=== PATIENT | female | born 1980 | race Caucasian/White ===

== ENCOUNTER → 2023-06-04 09:33 | Outpatient (CLI) | payer OTHER, SELFPAY | PROVIDERS: Visit Provider Nurse Practitioner Family | DX: J02.9 Acute pharyngitis, unspecified (principal) | CPT/HCPCS: 87070 ==

== ENCOUNTER → 2023-06-16 13:47 | Outpatient (CLI) | payer OTHER, SELFPAY ==
[2023-06-16 20:53] LABS: Urine N gonorrhoeae NOT DETECTED
[2023-06-16 21:20] LABS: Urine Chlamydia NOT DETECTED
== END ==
PROVIDERS: PCP Physician Assistant Medical; Visit Provider Physician Assistant Medical
DX: J02.9 Acute pharyngitis, unspecified (principal)
CPT/HCPCS: 87070; 87491; 87591

== ENCOUNTER → 2023-06-29 09:13 | Outpatient (CLI) | payer OTHER, SELFPAY ==
[2023-06-29 19:20] LABS: Add Manual Diff / Slide Review NO; Basophils Absolute Auto 0 /uL (0-100); Basophils Percent Auto 0.6 % (0-2); Eosinophils Absolute Auto 200 /uL (0-450); Eosinophils Percent Auto 2.6 % (2-4); Hematocrit 39.4 % (36-46); Hemoglobin 13.5 g/dL (12.0-16.0); Lymphocytes Absolute Auto 1200 /uL (1100-4500); Mean Corpuscular HGB Conc 34.2 % (30-36); Mean Corpuscular Hemoglobin 29.3 PG (26-34); Mean Corpuscular Volume 85.6 fL (80-100); Monocytes Absolute Auto 500 /uL (0-900); Monocytes Percent Auto 7.2 % (3-14); Neutrophils Absolute Auto 5300 /uL (1500-7000); Neutrophils Percent Auto 72.6 % (50-75); Platelet Count 336 X10^3/uL (150-400); Red Cell Distribution Width 13.7 % (11.6-14.8); White Blood Cell Count 7.2 X10^3/uL (4.5-11.0)
[2023-06-29 20:18] LABS: Alanine Aminotransferase 91 IU/L (<35); Albumin 4.3 g/dL (3.5-5.0); Albumin Globulin Ratio 1.3 (1.0-2.8); Alkaline Phosphatase 103 U/L (38-126); Aspartate Aminotransferase 65 IU/L (14-36); BUN Creatinine Ratio 18.6 (6-22); Bilirubin Total 0.8 mg/dL (0.2-1.3); Blood Urea Nitrogen 11 mg/dL (7-17); Calcium 9.5 mg/dL (8.4-10.2); Carbon Dioxide 26 mmol/L (22-32); Chloride 95 mmol/L (98-107); Cholesterol 166 mg/dL (140-199); Estimated Glomerular Filt Rate > 60 mL/min (>60); Globulin 3.3 g/dL (1.7-4.1); Glucose 90 mg/dL (70-100); HDL Cholesterol 71 mg/dL (40-60); HEMOLYSIS < 15 (0-50); LDL Cholesterol Calculated 82 mg/dL (<100); Potassium 3.7 mmol/L (3.4-5.1); Sodium 131 mmol/L (137-145); Total Protein 7.6 g/dL (6.3-8.2); Triglycerides 65 mg/dL (35-150)
[2023-06-29 20:28] LABS: Vitamin D 25 Hydroxy (D3) 41.1 ng/mL (30.0-100.0)
[2023-06-29 20:42] LABS: TSH w/ Reflex to FT4 1.57 uIU/mL (0.47-4.68)
[2023-07-01 16:32] LABS: Hepatitis B Surface Antigen NEGATIVE s/c (NEGATIVE)
[2023-07-01 16:51] LABS: Hep C Virus Ab w/Reflex Quant NEGATIVE s/c (NEGATIVE)
[2023-07-09 09:13] LABS: HSV1IGG < 0.91
[2023-07-09 09:16] LABS: HSV 2 IGG AB < 0.91
== END ==
PROVIDERS: PCP Physician Assistant Medical; Visit Provider Physician Assistant Medical
DX: J02.9 Acute pharyngitis, unspecified (principal); M54.2 Cervicalgia; Z11.3 Encounter for screening for infections with a predominantly sexual mode of transmission; K14.6 Glossodynia; R79.89 Other specified abnormal findings of blood chemistry
CPT/HCPCS: 80053; 80061; 82306; 84443; 85025; 86695; 86696; 86803; 87340

== ENCOUNTER → 2023-07-08 09:14 | Outpatient (CLI) | payer OTHER, SELFPAY ==
--- NOTE | 2023-07-08 09:15 | DI.US.S_ITS ---
PROCEDURE: US ABDOMEN LIMITED INDICATIONS: ELEVATED LFT'S TECHNIQUE: Real-time scanning was performed of the abdominal and retroperitoneal organs, with image documentation. COMPARISON: None. FINDINGS: Liver: The liver demonstrates diffusely increased echotexture without focal abnormalities consistent with chronic hepatocellular disease/hepatic steatosis. Gallbladder: Gallbladder is normal in sonographic appearance without gallstones, gallbladder wall thickening, pericholecystic fluid, or abnormal sonographic Fowler's. Biliary ducts: Intrahepatic bile ducts are non-dilated. Extrahepatic bile duct caliber measures 2 mm. Normal is 6-7 mm or less in diameter, or 10 mm or less post-cholecystectomy. Pancreas: Visualized portions of the pancreas are sonographically normal. Spleen: Spleen is normal in size and homogeneous in echotexture. Kidneys: Right kidney is normal in size and echotexture. Right kidney measures 10.1 cm long. No hydronephrosis or nephrolithiasis. No solid masses. Miscellaneous: No free abdominal fluid. IMPRESSION: The liver demonstrates diffusely increased echotexture without focal abnormalities consistent with chronic hepatocellular disease/hepatic steatosis. Findings may explain patient's elevated LFTs. Dictated by: Stephen Jenkins M.D. on 07/08/2023 at 14:51 Approved by: Stephen Jenkins M.D. on 07/08/2023 at 14:53
== END ==
LOC: US 09:15
PROVIDERS: PCP Physician Assistant Medical; Referring Provider Physician Assistant Medical; Visit Provider Physician Assistant Medical
DX: R79.89 Other specified abnormal findings of blood chemistry (principal)
CPT/HCPCS: 76705

== ENCOUNTER → 2023-07-22 11:13 | Outpatient (CLI) | payer OTHER, SELFPAY ==
[2023-07-22 20:52] LABS: Alanine Aminotransferase 42 IU/L (<35); Albumin 4.1 g/dL (3.5-5.0); Albumin Globulin Ratio 1.3 (1.0-2.8); Alkaline Phosphatase 91 U/L (38-126); Aspartate Aminotransferase 45 IU/L (14-36); BUN Creatinine Ratio 16.9 (6-22); Bilirubin Total 0.5 mg/dL (0.2-1.3); Blood Urea Nitrogen 11 mg/dL (7-17); Calcium 8.9 mg/dL (8.4-10.2); Carbon Dioxide 25 mmol/L (22-32); Chloride 99 mmol/L (98-107); Estimated Glomerular Filt Rate > 60 mL/min (>60); Gamma Glutamyl Transpeptidase 48 U/L (12-43); Globulin 3.1 g/dL (1.7-4.1); Glucose 69 mg/dL (70-100); HEMOLYSIS < 15 (0-50); Potassium 4.1 mmol/L (3.4-5.1); Sodium 133 mmol/L (137-145); Total Protein 7.2 g/dL (6.3-8.2)
[2023-07-22 21:31] LABS: Hepatitis B Surface Antigen NEGATIVE s/c (NEGATIVE)
[2023-07-22 21:48] LABS: Hep C Virus Ab w/Reflex Quant NEGATIVE s/c (NEGATIVE)
== END ==
PROVIDERS: PCP Physician Assistant Medical; Visit Provider Physician Assistant Medical
DX: R79.89 Other specified abnormal findings of blood chemistry (principal)
CPT/HCPCS: 80053; 82977; 86803; 87340

== ENCOUNTER → 2023-10-11 13:22 | Outpatient (CLI) | payer OTHER, SELFPAY ==
[2023-10-11 20:46] LABS: Erythrocyte Sedimentation Rate 6 MM/HR (0-20)
[2023-10-11 20:49] LABS: C-Reactive Protein Quant < 0.5 mg/dL (<1.0)
== END ==
PROVIDERS: PCP Physician Assistant Medical; Visit Provider Physician Assistant Medical
DX: R76.8 Other specified abnormal immunological findings in serum (principal); K75.81 Nonalcoholic steatohepatitis (NASH); K14.6 Glossodynia
CPT/HCPCS: 85651; 86140; 86200

== ENCOUNTER → 2023-11-11 08:10 | Outpatient (CLI) | payer OTHER, SELFPAY ==
--- NOTE | 2023-11-11 08:11 | DI.MRI.S_ITS ---
PROCEDURE: MR HAND RT WO/W CON INDICATIONS: Dog bite with persistent swelling and decreased ROM TECHNIQUE: Noncontrast coronal T1 spin echo and T2 fast spin echo with fat saturation, axial proton density fast spin echo and T2 fast spin echo with fat saturation, axial T1 spin echo with fat saturation, sagittal T1 spin echo and STIR through the hand and fingers. Post-contrast axial, coronal, and sagittal T1 spin echo through the hand and fingers. COMPARISON: [facility], CR, XR HAND 3+ VIEWS RIGHT, 10/19/2023, 0:48. FINDINGS: Image quality: Excellent. Bones: Focal signal abnormality is seen at the midportion of the 2nd and 3rd metacarpal shafts that could be secondary to osseous contusions or reactive edema. Osteomyelitis is considered less likely. The bones are normally aligned, without marrow contusions or fractures. No intra-osseous lesions. Soft tissues: Subcutaneous edema and enhancement are seen at the dorsal aspect of the hand at the level of the 2nd and 3rd metacarpal shafts. There is also edema within the interosseous musculature. No drainable fluid collection. Edema is seen surrounding the 2nd and 3rd extensor tendons without significant tenosynovitis or tendon tearing. Focal soft tissue edema is seen at the webspace between the 4th and 5th fingers. Visualized musculature is otherwise normal. The visualized flexor tendons are intact. IMPRESSION: 1. Soft tissue edema and enhancement at the dorsum of the hand overlying the 2nd and 3rd metacarpals extending into the interosseous muscles. No focal fluid collection. Mild focal soft tissue edema at the interspace between the 4th and 5th fingers. Edema surrounds the extensor tendons at the dorsum of the hand without acute tendon tearing. 2. Small foci of abnormal signal at the mid 2nd and 3rd metacarpal shafts, possibly reactive or secondary to osseous contusions. Osteomyelitis is considered less likely. Approved by: Dario Garcia M.D. on 11/11/2023 at 15:47
== END ==
PROVIDERS: PCP Physician Assistant Medical; Referring Provider Physician Assistant; Visit Provider Physician Assistant
DX: S61.451A Open bite of right hand, initial encounter (principal); M79.89 Other specified soft tissue disorders; W54.0XXA Bitten by dog, initial encounter
CPT/HCPCS: 73220; A9579

== ENCOUNTER → 2024-05-25 12:02 | Outpatient (CLI) | payer OTHER, SELFPAY ==
[2024-05-25 19:47] LABS: Alanine Aminotransferase 20 IU/L (<35); Albumin 4.1 g/dL (3.5-5.0); Albumin Globulin Ratio 1.3 (1.0-2.8); Alkaline Phosphatase 96 U/L (38-126); Aspartate Aminotransferase 33 IU/L (14-36); BUN Creatinine Ratio 19.4 (6-22); Bilirubin Total 0.4 mg/dL (0.2-1.3); Bilirubin Unconjugated 0.1 mg/dL (0.0-1.1); Blood Urea Nitrogen 14 mg/dL (7-17); Calcium 9.4 mg/dL (8.4-10.2); Carbon Dioxide 31 mmol/L (22-32); Chloride 101 mmol/L (98-107); Estimated Glomerular Filt Rate > 60 mL/min (>60); Globulin 3.2 g/dL (1.7-4.1); Glucose 100 mg/dL (70-100); HEMOLYSIS < 15 (0-50); Potassium 3.7 mmol/L (3.4-5.1); Sodium 137 mmol/L (137-145); Total Protein 7.3 g/dL (6.3-8.2)
[2024-05-25 19:53] LABS: Add Manual Diff / Slide Review NO; Basophils Absolute Auto 100 /uL (0-100); Basophils Percent Auto 1.1 % (0-2); Eosinophils Absolute Auto 200 /uL (0-450); Eosinophils Percent Auto 3.5 % (2-4); Hematocrit 41.7 % (36-46); Hemoglobin 14.4 g/dL (12.0-16.0); Lymphocytes Absolute Auto 1800 /uL (1100-4500); Mean Corpuscular HGB Conc 34.6 % (30-36); Mean Corpuscular Volume 86.8 fL (80-100); Monocytes Absolute Auto 500 /uL (0-900); Neutrophils Absolute Auto 3700 /uL (1500-7000); Neutrophils Percent Auto 59.4 % (50-75); Platelet Count 333 X10^3/uL (150-400); Red Cell Distribution Width 13.3 % (11.6-14.8); White Blood Cell Count 6.3 X10^3/uL (4.5-11.0)
[2024-05-25 20:19] LABS: Thyroid Stimulating Hormone 1.84 uIU/mL (0.47-4.68)
[2024-05-25 20:58] LABS: Erythrocyte Sedimentation Rate 15 MM/HR (0-20)
== END ==
PROVIDERS: PCP Physician Assistant Medical; Visit Provider Physician Assistant Medical
DX: S61.409A Unspecified open wound of unspecified hand, initial encounter (principal); R79.89 Other specified abnormal findings of blood chemistry; K75.81 Nonalcoholic steatohepatitis (NASH); R00.2 Palpitations; A04.72 Enterocolitis due to Clostridium difficile, not specified as recurrent; L03.90 Cellulitis, unspecified; S61.459A Open bite of unspecified hand, initial encounter; I96 Gangrene, not elsewhere classified; W54.0XXA Bitten by dog, initial encounter
CPT/HCPCS: 80053; 80076; 84443; 85025; 85651

== ENCOUNTER → 2024-06-29 12:04 | Outpatient (CLI) | payer OTHER, SELFPAY ==
--- NOTE | 2024-06-29 12:05 | DI.ECHO.S_ITS ---
[facility] : : [address] : [facility] : : [place], : : [place] [address] : : Phone: [phone] Echocardiogram Report + + :Name: CLEM CALHOUN Study Date: 06/29/2024 Height: 62 in : :[facility] ReadingLocation: Weight: 160 lb : : Gender: Female BSA: 1.7 m2 : :: 1980 Age: 43 yrs BP: 108/76 mmHg: :Reason For Study: PALPITATIONS : :Ordering Physician: GLENDY, : :MIGUELANGEL Performed By: David Oscar : :Referring: MIGUELANGEL PIKE : + + Interpretation Summary The left ventricle is normal in size. The left ventricular ejection fraction is normal. The ejection fraction is estimated to be 60-65%. Diastolic parameters suggest probable normal left ventricular diastolic function and normal filling pressures. The right ventricle is normal in size and function. No significant valvular pathology seen The IVC is of normal diameter and collapses greater than 50% with a sniff. This suggests a low right atrial pressure of 3 mm Hg. Procedure: A two-dimensional transthoracic echocardiogram with color flow and Doppler was performed. The study quality was technically good. There is no prior echocardiogram noted for this patient. The patient was in normal sinus rhythm during the exam. Left Ventricle: The left ventricle is normal in size. There is normal left ventricular wall thickness. There is no thrombus. The ejection fraction is estimated to be 60-65%. The left ventricular ejection fraction is normal. There are no focal wall motion abnormalities. Diastolic parameters suggest probable normal left ventricular diastolic function and normal filling pressures. Right Ventricle: The right ventricle is normal in size and function. Atria: The left atrial size is normal. Right atrial size is normal. There is no Doppler evidence for an interatrial shunt. Mitral Valve: The mitral valve leaflets appear normal. There is no evidence of stenosis, fluttering, or prolapse. There is no mitral regurgitation noted. Aortic Valve: The aortic valve is trileaflet. The aortic valve opens well. There is no aortic valve stenosis. No aortic regurgitation is present. Tricuspid Valve: The tricuspid valve leaflets are thin and pliable. There is a trace or physiologic amount of tricuspid regurgitation. Pulmonary artery pressures cannot be estimated because of the lack of a measurable TR jet velocity. Pulmonic Valve: The pulmonic valve leaflets are thin and pliable; valve motion is normal. There is trace pulmonic regurgitation. Great Vessels: The aortic root is normal size. The dimensions of the ascending aorta are normal. The pulmonary artery is normal size. The IVC is of normal diameter and collapses greater than 50% with a sniff. This suggests a low right atrial pressure of 3 mm Hg. Pericardium/ Pleura There is no pericardial effusion. There is no pleural effusion. MMode/2D Measurements & Calculations LVIDd: 4.2 cm AoV Openin.4 cm LVIDs: 2.8 cm LVOT diam: 1.8 cm IVSd: 0.52 cm Ao root diam: 2.9 cm LVPWd: 0.64 cm asc Aorta Diam: 2.7 cm LV dumont. diameter/BSA (cm/m^2): 2.4 Ao Arch Diam (Prox Trans): 1.3 cm LV sys. diameter/BSA (cm/m^2): 1.6 FS: 32.9 % EPSS: 0.28 cm LA A2 area: 13.6 cm2 RA long axis: 4.5 cm LA A4 area: 11.5 cm2 RA area: 12.5 cm2 LA length (vol): 4.3 cm RA vol: 29.8 ml LA vol: 30.4 ml RA : 17.1 ml/m2 LA vol index: 17.5 ml/m2 RVD1 (basal): 3.1 cm IVC diam: 1.3 cm RVD2 (mid): 2.2 cm TAPSE: 2.5 cm Doppler Measurements & Calculations Ao V2 max: 127.5 cm/sec LVOT Max Karri: 101.7 cm/sec Ao V2 mean: 95.4 cm/sec LV V1 max P.1 mmHg Ao V2 VTI: 28.3 cm LV V1 VTI: 22.6 cm Ao max P.5 mmHg Ao mean P.9 mmHg SHELBY(I,D): 2.1 cm2 MV E max karri: 76.1 cm/sec SHELBY(V,D): 2.0 cm2 MV A max karri: 58.5 cm/sec SHELBY indexed to BSA (cm^2/m^2): 1.2 MV E/A: 1.3 sev ratio: 0.80 Med Peak E' Karri: 10.7 cm/sec E/E' med: 7.1 Lat Peak E' Karri: 15.9 cm/sec E/E' lat: 4.8 E/e' average: 5.9 MV dec time: 0.22 sec PA V2 max: 74.1 cm/sec PA V2 mean: 51.6 cm/sec PA mean P.2 mmHg PA pr(Accel): 17.3 mmHg SV(LVOT): 58.2 ml Reading Physician:11:42 AM
== END ==
LOC: ECHO 12:05
PROVIDERS: PCP Physician Assistant Medical; Referring Provider Physician Assistant Medical; Visit Provider Physician Assistant Medical
DX: R00.2 Palpitations (principal)
CPT/HCPCS: 93306

== ENCOUNTER → 2024-08-31 17:11 | Outpatient (CLI) | payer OTHER, SELFPAY | PROVIDERS: PCP Physician Assistant Medical; Visit Provider Physician Assistant Medical | DX: K12.1 Other forms of stomatitis (principal) | CPT/HCPCS: 87070; 87075; 87205 ==

== ENCOUNTER → 2024-09-11 13:46 | Outpatient (CLI) | payer OTHER, SELFPAY | PROVIDERS: PCP Physician Assistant Medical; Visit Provider Physician Assistant Medical | DX: K12.1 Other forms of stomatitis (principal) | CPT/HCPCS: 86003 ==